=== PATIENT | female | born 1960 | race Caucasian/White ===

== ENCOUNTER 2017-03-18 09:03 | Emergency (ER) | payer OTHER ==
[~2017-03-18] VITALS: Ht 172.7 cm; Wt 100.0 kg
[2017-03-18 09:07] VITALS: BP 151/86; PULSE 82; RESP 18; TEMP 98.7; O2SAT 97
--- NOTE | 2017-03-18 09:33 | PD ---
HPI . right ankle pain s/p fall Chief Complaint: Fall Time Seen by Provider: 09:33 Travel History International Travel<30 days: No Contact w/Intl Traveler<30days: No Traveled to known affect area: No History of Present Illness HPI 56-year-old female with no past medical history here with complaints of right ankle pain status post fall about 7 AM this morning. Patient was walking on her stairs and she accidentally twisted her right ankle. She is now here with complaints of pain in the right lateral ankle rated as 5/10 without any further radiation. She is able to move it, but it is limited secondary pain. There is some mild edema. She denies any head injury or loss of consciousness PFSH Past Medical History ?: Not Social History Tobacco Use: No Allergies-Medications Reported Meds & Prescriptions Reported Meds & Active Scripts Active Ibuprofen 800 Mg Tab 800 Mg PO TID Review of Systems General / Constitutional: No: Fever Eyes: No: Visual changes HENT: No: Headaches Cardiovascular: No: Chest Pain or Discomfort Respiratory: No: Shortness of Breath Gastrointestinal: No: Abdominal Pain Genitourinary: No: Dysuria Musculoskeletal: Positive: Pain (right ankle pain) Skin: No Rash Neurologic: No: Weakness Psychiatric: No: Depression Endocrine: No: Polydipsia Hematologic/Lymphatic: No: Easy Bruising Physical Exam Narrative GENERAL: AAO x 3, no acute distress, Well-nourished, well-developed patient. SKIN: Warm and dry. No visible rashes or bruising. Very minimal edema to the right lateral ankle. HEAD: Normocephalic and atraumatic. EYES: No scleral icterus. No injection or drainage. EOM intact, PERRLA ENT: No nasal drainage noted. Mucous membranes pink. Airway patent. NECK: Supple, trachea midline. No JVD. CARDIOVASCULAR: Regular rate and rhythm without murmurs, gallops, or rubs. RESPIRATORY: Breath sounds equal bilaterally. No accessory muscle use. No rhonchi or rales. GASTROINTESTINAL: Abdomen soft, non-tender, nondistended. EXTREMITIES: No cyanosis. Very minimal edema to the right lateral ankle. Full range of motion, but limited secondary pain. Pedal pulses are intact. NEURO: sensation intact, all toes move normally in the right foot BACK: Nontender without obvious deformity. No CVA tenderness. PSYCH: AAO x 3, normal affect. Data Data Last Documented VS Vital Signs Date Time Temp Pulse Resp B/P Pulse Ox O2 Delivery O2 Flow Rate FiO2 03/18/17 09:07 98.7 82 18 151/86 97 Orders ^ El Bandage (03/18/17 09:36) Crutches (03/18/17 09:36) MDM Medical Decision Making Medical Screen Exam Complete: Yes Emergency Medical Condition: Yes Medical Record Reviewed: Yes Differential Diagnosis right ankle sprain, right ankle contusion, less likely fracture Narrative Course This is a 56-year-old female presenting with right ankle pain status post twisting injury on stairs. An examination was done and it does not appear fractured. I've explained this to her. I do not recommend any imaging as she does not meet [place] ankle rules criteria. I will provide her with an El wrap and crutches. I will give her anti-inflammatories. I've advised DAVIDA. Patient verbalized understanding of instructions, questions were answered, and thanked me for their care. I advised them if their condition worsens, please return to the nearest emergency room for further care. Diagnosis Primary Impression: Right ankle sprain Qualified Code: S93.401A - Sprain of right ankle, unspecified ligament, initial encounter Patient Instructions: General Instructions Additional Instructions: Rest the affected area as much as possible. Use the crutches for the next 3-5 days. Ice this area for 15-20 minutes at a time. You can do this every hour or as much as tolerated. Keep this area compressed (el bandage) as tolerated. Elevate this area. Use ibuprofen as needed for pain and inflammation. Please return to emergency department if your symptoms return or worsen. Follow up with your primary care provider. Take medications as prescribed. Med/Other Pt SpecificInfo: Prescription(s) given Scripts Ibuprofen 800 Mg [id number] Mg PO TID #21 TAB Prov:Tino Rivas MD 03/18/17 Disposition: 01 DISCHARGE HOME Condition: Stable Cydney Alvarez March 18, 2017 09:33 Cydney Alvarez March 18, 2017 09:33
[2017-03-18] MEDS ORDERED: IBUP800T23 PO (09:37)
== END 2017-03-18 10:37 | disposition home or self-care (01) ==
LOC: NEPK 09:03
DX: S93.401A Sprain of unspecified ligament of right ankle, initial encounter (principal); W10.9XXA Fall (on) (from) unspecified stairs and steps, initial encounter; Y93.01 Activity, walking, marching and hiking
CPT/HCPCS: 99282